=== PATIENT | female | born 1970 | race Hispanic/Latino ===

== ENCOUNTER → 2020-12-19 | Outpatient (CLI) | payer BC | LOC: RAD 09:45 | PROVIDERS: ATTEND Internal Medicine | DX: R06.02 Shortness of breath (principal); M79.89 Other specified soft tissue disorders | CPT/HCPCS: 71046; 93306; 93970 ==

== ENCOUNTER → 2021-01-10 | Outpatient (CLI) | payer BC | LOC: US 10:14 | PROVIDERS: ATTEND Internal Medicine | DX: I12.9 Hypertensive chronic kidney disease with stage 1 through stage 4 chronic kidney disease, or unspecified chronic kidney disease (principal) | CPT/HCPCS: 76770 ==

== ENCOUNTER → 2021-04-28 | Outpatient (CLI) | payer BC | LOC: US 09:08 | PROVIDERS: ATTEND Internal Medicine | DX: N18.9 Chronic kidney disease, unspecified (principal) | CPT/HCPCS: 76770 ==

== ENCOUNTER → 2021-11-27 | Outpatient (CLI) | payer OTHER | LOC: US 11:44 | PROVIDERS: ATTEND Internal Medicine Nephrology | DX: N18.31 Chronic kidney disease, stage 3a (principal) | CPT/HCPCS: 76770; 76857 ==

== ENCOUNTER 2022-06-20 14:27 | Emergency (ER) | payer OTHER ==
[~2022-06-20] VITALS: Ht 149.9 cm; Wt 58.1 kg
[2022-06-20] MEDS ORDERED: HYDRALAZINE HCL 20 MG/ML VIAL IV STA ×2 (15:45→17:34)
[2022-06-20] MEDS ORDERED: ONDANSETRON HCL INJ 2MG/ML 2ML 2 MG/ML VIAL IV STA (15:45)
[2022-06-20] MEDS ORDERED: SODIUM CHLORIDE FLUSH 10 ML SYR IV PRN (15:50)
[2022-06-20 16:02] LABS: BASOPHILS % 0.4 % (0.0-1.0); EOSINOPHILS # (AUTO) 0.1 (0.0-0.4); EOSINOPHILS % 0.9 % (0.0-6.0); HEMATOCRIT 26.1 % (34.2-44.1); HEMOGLOBIN 8.2 g/dL (12.0-16.0); LYMPHOCYTES # (AUTO) 1.9 (1.0-3.2); LYMPHOCYTES % 25.4 % (18.0-39.1); MEAN CORPUSCULAR HEMOGLOBIN 27.4 pg (28-32); MEAN CORPUSCULAR HGB CONC 31.4 g/dL (31-35); MEAN CORPUSCULAR VOLUME 87.3 fL (81-99); MONOCYTES # (AUTO) 0.3 (0.2-0.8); MONOCYTES % 4.2 % (4.4-11.3); NEUTROPHILS # (AUTO) 5.1 (2.1-6.9); PLATELET COUNT 352 x10e3/uL (140-360); RED BLOOD COUNT 2.99 x10e6/uL (3.6-5.1); RED CELL DISTRIBUTION WIDTH 13.2 % (11.7-14.4)
[2022-06-20 16:06] LABS: INR 0.9
[2022-06-20 16:07] LABS: PARTIAL THROMBOPLASTIN TIME 30.5 seconds (23.8-35.5)
[2022-06-20 16:19] LABS: ALANINE AMINOTRANSFERASE 9 IU/L (0-55); ALBUMIN 2.8 g/dL (3.5-5.0); ALBUMIN/GLOBULIN RATIO 0.9 (0.8-2.0); ALKALINE PHOSPHATASE 48 IU/L (40-150); ANION GAP 17.6 mmol/L (8-16); BLOOD UREA NITROGEN 78 mg/dL (7-26); BUN/CREATININE RATIO 8 (6-25); CALCIUM 8.3 mg/dL (8.4-10.2); CARBON DIOXIDE 15 mmol/L (22-29); CHLORIDE 104 mmol/L (98-107); CREATININE, SERUM 9.62 mg/dL (0.57-1.11); GLUCOSE 144 mg/dL (74-118); LIPASE 69 U/L (8-78); POTASSIUM 4.6 mmol/L (3.5-5.1); SODIUM 132 mmol/L (136-145)
[2022-06-20] MEDS ORDERED: CLINDAMYCIN 600MG / 50ML 50 ML IV SCH (18:00)
[2022-06-20] MEDS ORDERED: METOCLOPRAMIDE HCL 10 MG/2ML VIAL IV ONE (18:30)
[2022-06-20] MEDS ORDERED: ONDANSETRON ODT4 MG PO (18:30)
== END 2022-06-20 19:00 | disposition home or self-care (01) ==
LOC: ER 15:16
DX: I16.0 Hypertensive urgency (principal); R51.9 Headache, unspecified; K04.7 Periapical abscess without sinus; R60.9 Edema, unspecified; D64.9 Anemia, unspecified; I12.9 Hypertensive chronic kidney disease with stage 1 through stage 4 chronic kidney disease, or unspecified chronic kidney disease; E11.22 Type 2 diabetes mellitus with diabetic chronic kidney disease; N18.9 Chronic kidney disease, unspecified; E78.5 Hyperlipidemia, unspecified; Z20.822 Contact with and (suspected) exposure to COVID-19; R94.31 Abnormal electrocardiogram [ECG] [EKG]
CPT/HCPCS: 0223U; 36415; 70450; 70486; 71045; 80053; 83690; 83880; 84484; 85025; 85610; 85730; 93005; 99284; J0360; J2405; J2765